=== PATIENT | female | born 2000 | race Asian ===

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

== ENCOUNTER 2019-02-12 17:11 | Emergency (ER) | payer BC, OTHER ==
[2019-02-12 17:21] VITALS: BMI 22.6
[2019-02-12] MEDS ORDERED: SODIUM CHLORIDE 1,000 ML IV STA (17:52)
--- NOTE | 2019-02-12 17:52 | PDOC ---
Rapid Medical Evaluation Chief Complaint: Pain Time Seen by Provider: 02/12/19 17:41 Medical Evaluation: Allergies Allergy/AdvReac Type Severity Reaction Status Date / Time No Known Allergies Allergy Verified 11/12/17 18:51 Vital Signs Temp Pulse Resp BP Pulse Ox 98.1 F 147 H 18 119/74 99 02/12/19 17:19 02/12/19 17:19 02/12/19 17:19 02/12/19 17:19 02/12/19 17:19 02/12/19 17:50 I have done a rapid medical evaluation. 18 yo 8 week F w/ abdominal pain, nausea, vaginal bleeding, tachycardic at 147. NO documented IUP. Pt needs higher level of care, will upgrade to main ER. CHarge nurse Paula singh. Pt placed in 12A. Discharge Disposition - Discharge Dispostion Last Admission D/C Date: 11/13/17 - Referrals - Patient Instructions - Post Discharge Activity
[2019-02-12] MEDS ORDERED: METOCLOPRAMIDE HCL INJECTION 10 MG/2 ML VIAL IVPUSH ONE (18:25)
[2019-02-12] MEDS ORDERED: DEXTROSE 5%-NORMAL SALINE 1,000 ML IV ONE (18:25)
[2019-02-12] MEDS ORDERED: METOCLOPRAMIDE HCL INJECTION 10 MG/2 ML VIAL ONE (18:30)
--- NOTE | 2019-02-12 18:33 | PDOC ---
Documentation entered by Patricia Bhakta SCRIBE, acting as scribe for Savana Joseph MD. Savana Joseph MD: This documentation has been prepared by the scribe, Patricia Bahkta SCRIBE, under my direction and personally reviewed by me in its entirety. I confirm that the documentation accurately reflects all work, treatment, procedures, and medical decision making performed by me. History of Present Illness - General Chief Complaint: Pain Stated Complaint: NAUSEA/VOMITING Time Seen by Provider: 02/12/19 17:41 History Source: Patient Exam Limitations: No Limitations - History of Present Illness Initial Comments: 02/12/19 19:02 Ms. Sampson is a 18 year old female, A0, currently 2 months , with past medical history significant for elevated heart rate (with negative work up at [facility]) presents to the emergency department with headache, pelvic cramps, nausea, vomiting, with decreased PO intake. The patient presents with 2 weeks of ongoing lower abdominal pain, that travels to the right back, vaginal discomfort, dizziness, nausea and vomiting. The patient reports she is unable to keep any fluids or solids down, states shes hungry and feels dehydrated, attempting to drink fluids and gatorade. The patient reports additional concern of intermittent chest pain, thats sharp in quality, that radiates to the left side to the back with difficulty moving her arm. The patient reports her symptoms worsened today, with a new onset of vaginial spotting. The patient reports additional concern of cough, shortness of breath and constipation. The patient reports her last bowel movement was a week ago, no relief with Senna. The patient reports 2 days prior she had a low grade temperature of 100. The patient reports a history of headache, for which she takes Tylenol, last dose was at 11:00 am this morning. The patient reports prior to , she was having brownish vaginal discharge for a week, states thats when she took the took and found out that she was . Denies leg pain, sore throat, weakness, numbness or tingling. The patient reports she had heart problem ?PFO in 2018, with unremarkable workup by cards at [facility], while was with [facility]. LMP: December 02, 2018 (irregular at baseline) Allergies: NKDA Social history: No tobacco, alcohol or drug use reported. 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 Initially followed Dr. Solis , due to insurance issues, she was referred to Dr. Brand. Past History - Past Medical History Allergies/Adverse Reactions: Allergies Allergy/AdvReac Type Severity Reaction Status Date / Time No Known Allergies Allergy Verified 11/12/17 18:51 Home Medications: Ambulatory Orders Cephalexin Monohydrate [Keflex -] 500 mg PO BID 10 Days #20 capsule 02/12/19 Metoclopramide HCl [Reglan -] 10 mg PO BID PRN #8 tablet 02/12/19 Nystatin Cream [Mycostatin Cream -] 1 applic VG DAILY #10 applic 02/12/19 Asthma: Yes (uses albuterol inhaler PRN) Cancer: No Cardiac Disorders: No COPD: No Diabetes: No HTN: No Seizures: No Thyroid Disease: No - Suicide/Smoking/Psychosocial Hx Smoking History: Never smoked Have you smoked in the past 12 months: No Hx Alcohol Use: No Drug/Substance Use Hx: No Substance Use Type: None Hx Substance Use Treatment: No Review of Systems - Review of Systems Able to Perform ROS?: Yes Comments:: 02/12/19 19:02 GENERAL/CONSTITUTIONAL:+low grade fever or chills. + weakness. no sweats. HEAD, EYES, EARS, NOSE AND THROAT: No change in vision or hearing. No ear pain or discharge. . No difficulty swallowing. No congestion. +sore throat and dry mouth CARDIOVASCULAR: +chest pain. No palpitations, syncope or edema. RESPIRATORY: +SOB, cough, No wheezing, or hemoptysis. GASTROINTESTINAL +abdominal pain, nausea, vomiting, constipation, decreased PO intake. No diarrhea or bloody stool. GENITOURINARY: +vaginal spotting. No hematuria, dysuria, frequency, urgency or other changes. MUSCULOSKELETAL: No joint or muscle swelling or pain. No decreased range of motion. No neck pain. +back pain SKIN: No rash or changes in skin color or lesions. No wounds. NEUROLOGIC: alert and oriented appropriately +headache and dizziness. No loss of consciousness, or change in strength/sensation. HEMATOLOGIC/LYMPHATIC: No anemia, easy bruising/bleeding, or history of blood clots. ALLERGIC/IMMUNOLOGIC: No allergies PSYCH: no anxiety/depression All other systems reviewed and negative, or as documented in HPI. *Physical Exam - Vital Signs Last Vital Signs Temp Pulse Resp BP Pulse Ox 98.1 F 147 H 18 119/74 99 02/12/19 17:19 02/12/19 17:19 02/12/19 17:19 02/12/19 17:19 02/12/19 17:19 - Physical Exam Comments: 02/12/19 19:02 General: Well appearing, awake and alert, NAD. HEENT: NCAT, PERRL, EOMI, clear conjunctiva, anicteric, moist mucus membranes, clear oropharynx, no oral lesions.. Neck: neck supple, FROM Resp: CTAB, normal and even respirations, no respiratory distress CVS: +tachycardic, no murmurs, 2+ peripheral pulses throughout, no peripheral edema Abdomen: soft, nondistended, +suprapubic tenderness, without rebound or guarding. No CVA tenderness. Negative Brewster. No mcburneys point tenderness. Back: nontender, normal inspection and ROM MSK: no edema, DAVIS x4, ROM intact. No clubbing or cyanosis. normal bulk and tone. Extremities: no calf tenderness Neuro: alert, oriented appropriately; no focal neurologic deficits Skin: warm and well perfused, cap refill <2 sec, normal color, no rash Heart Score/ECG Review #1 ECG reviewed & interpreted by me at: 18:30 General ECG Interpretation: Sinus Rhythm, Normal Intervals Compared to previous ECG there are: Previous ECG unavail 02/12/19 18:46 EKG sinus tachycardia at 112bpm, no interval abnormalities, narrow QRS, ST and T wave segments and morphology normal. Nonspecific T wave abnormalities likely rate related - ECG Impressions Tachycardia: Sinus ED Treatment Course - LABORATORY CBC & Chemistry Diagram: 02/12/19 18:23 02/12/19 18:23 - RADIOLOGY Radiology Studies Ordered: Category Date Time Status <14WKS US [US] Stat Ultrasound 02/12/19 18:26 Ordered Radiograph Interpretation: 02/12/19 20:08 02/12/19 19:45 THIS IS A PRELIMINARY REPORT FROM [facility] DATE OF SERVICE: 2019-02-12 19:04:05 EXAM: OB ultrasound, twin gestations FINDINGS: There are dichorionic, diamniotic live twin gestations. Twin A: Estimated gestational age is 11 weeks 3 days. heart rate is 173 beats per minute. Twin B: Estimated gestational age is 11 weeks 2 days. heart rate is 185 beats per minute. The left ovary is not seen. Right ovary measures 3.0 x 1.8 x 1.9 cm. There is intact blood flow demonstrated to the right ovary. There is no free fluid seen. THIS DOCUMENT HAS BEEN ELECTRONICALLY SIGNED Doug Mckeon MD 02/12/2019 19:35 EST Medical Decision Making - Medical Decision Making 02/12/19 18:32 See HPI for details Vital signs reviewed, no fever, +tachycardia. likely dehydration DDx abdominal pain: Renal colic, biliary colic, metabolic/electrolyte derangements. GERD, PUD, esophageal spasm, pancreatitis, hepatitis, constipation , colitis, gastroenteritis, cholecystitis, UTI, pyelonephritis, ileus, SBO, medication side effect, hernia, appendicitis, diverticulitis, clinically doubt intra abdominal pathology, no focal RUQ or RLQ pain to suggest appy or tara. ectopic , miscarriage, demise, subchorionic hematoma, retained POC, normal first trimester bleeding, UTI in in . Fibroid uterus, vaginitis, infection, electrolyte/metabolic derangements, anemia. Prior notes reviewed, including admissions, discharges and consultations. laboratory results and imaging reviewed, basic labs and lytes wnl, UA_yeast and +WBCs/leuk esterase, treat as clinical UTI in with keflex course. EKG sinus tachycardia at 112bpm, no interval abnormalities, narrow QRS, ST and T wave segments and morphology normal. Nonspecific T wave abnormalities likely rate related Rh positive, no rhogam indicated - prior txs checked VS wnl, abdomen benign, no VB here, controlled Beta hcg appropriately elevated TVUS with twin gestation, live IUPs with dating at 11w2d with FHRs. ED course - most likely dehydration, poor PO intake with this , n/v. tachycardia improved, likely from dehydration. does not appear septic or toxic, doubt PE as no cp or sob or syncope, physio tachy expected in and pt has clinically improved. - IVF, dextrose, tylenol, reglan and reassess - requesting food and able to tolerate crackers and juice. feels much improved, informed of results and prompt followup - rx reglan for n/v in , supportive care and hydration. rx keflex and topical antifungal nystatin for yeast infection. Dispo: OB followup, bleeding precautions, advised prenatals. Pt to be discharged in stable condition. Patient made aware of impression and plan, return precautions discussed (including but not limited to worsening pain or symptoms), fevers, or signs of infection, chest pain, respiratory distress, inability to tolerate oral intake, dehydration, syncope, or neurologic changes) . Follow up with PMD and OB as recommended, follow up information provided, take medications as instructed for duration of time. continue with supportive care, avoid triggers and precipitants. All questions answered to patient's satisfaction and expressed understanding and comfort with this. Patient does not suffer from an acute life-threatening medical condition at this time she is safe for outpatient follow-up. 02/12/19 20:53 *DC/Admit/Observation/Transfer Diagnosis at time of Disposition: Nausea and vomiting during , UTI (urinary tract infection) Twin Qualifiers: Multiple gestation type: unspecified Trimester: unspecified trimester Qualified Code(s): O30.009 - Twin , unspecified number of placenta and unspecified number of amniotic sacs, unspecified trimester - Discharge Dispostion Disposition: HOME Condition at time of disposition: Improved Decision to Admit order: No - Prescriptions Prescriptions: Cephalexin Monohydrate [Keflex -] 500 mg PO BID 10 Days #20 capsule Metoclopramide HCl [Reglan -] 10 mg PO BID PRN #8 tablet PRN Reason: Nausea And/Or Vomiting Nystatin Cream [Mycostatin Cream -] 1 applic VG DAILY #10 applic - Referrals Referrals: Edwina Daigle MD [Staff Physician] - Aby Cortez MD [Staff Physician] - - Patient Instructions Printed Discharge Instructions: Diet, DI for Urinary Tract Infection (UTI), DI for -- Discomforts and Remedies, DI for Abdominal Pain -- Early Additional Instructions: 1) Please follow-up with your primary care doctor in the next 1-2 days. Please call tomorrow for for any urgent issues. 2) You were given a copy of the tests performed today. Please bring the results with you and review them with your primary care doctor. Your laboratory / imaging results were normal, you have twin you should take daily vitamins and follow with your racecourse barrier attendant and establish care. you have a vaginal yeast infection - use applicator for vaginal candidiasis, for 10 days clean and proper hygiene also you have urinary tract infection, take keflex twice a day x 10 days. If you have any worsening of symptoms or any other concerns please return to the ED immediately. Return if worsening symptoms including fevers, headache, vomiting, visual or hearing disturbances, abdominal pain, chest pain, shortness of breath, syncope, dehydration, inability to take things by mouth/vomiting, altered mental status, or worsening concerning symptoms. take reglan every 12 hours as needed for nausea and vomiting in , take small bites of food and stay hydrated. obstetricians have been provided for prompt followup. - Post Discharge Activity
[2019-02-12 18:41] LABS: BASO % 0.5 % (0-2.0); EOS % 1.2 % (0-4.5); HEMATOCRIT 35.8 % (32.4-45.2); HEMOGLOBIN 12.3 GM/dL (10.7-15.3); MCH 28.3 pg (25.7-33.7); MCHC 34.4 g/dl (32.0-36.0); MEAN CELL VOLUME 82.1 fl (80-96); MONO % 7.2 % (3.8-10.2); NEUT % 73.1 % (42.8-82.8); PLATELET COUNT 218 K/MM3 (134-434); RBC 4.36 M/mm3 (3.60-5.2); RDW 13.3 % (11.6-15.6); WHITE BLOOD COUNT 5.3 K/mm3 (4.0-10.0)
[2019-02-12 18:44] VITALS: TEMP 99.4
[2019-02-12 19:06] LABS: ALBUMIN 3.2 g/dl (3.4-5.0); ALK PHOS 93 U/L (45-117); ANION GAP 9 MMOL/L (8-16); BILIRUBIN,TOTAL 0.3 mg/dL (0.2-1); BLOOD UREA NITROGEN 4 mg/dL (7-18); CALCIUM 9.1 mg/dL (8.5-10.1); CHLORIDE 105 mmol/L (98-107); CO2 24 mmol/L (21-32); CREATININE 0.4 mg/dL (0.55-1.3); GLUCOSE,RANDOM 90 mg/dL (74-106); LIPASE 110 U/L (73-393); SGOT/AST 23 U/L (15-37); SGPT/ALT 30 U/L (13-61); SODIUM 138 mmol/L (136-145); TOT PROT 7.2 g/dl (6.4-8.2)
[2019-02-12 19:49] VITALS: BP 105/62; PULSE 110
[2019-02-12] MEDS ORDERED: ACETAMINOPHEN 325 MG TABLET (FP) PO ONE (20:07)
[2019-02-12] MEDS ORDERED: ACETAMINOPHEN 325 MG TABLET (FP) ONE (20:07)
[2019-02-12 20:16] LABS: EPI CELLS >36 /HPF (0-5/HPF); PH,URINE 6.5 (5.0-8.0); URINE APPEARANCE TURBID; URINE BACTERIA 6966.6 /hpf (NEGATIVE); URINE BILIRUBIN NEGATIVE (NEGATIVE); URINE CASTS 28 /lpf (0-8); URINE COLOR DK YELLOW; URINE GLUCOSE (UA) NEGATIVE (NEGATIVE); URINE KETONE 4+ (NEGATIVE); URINE LEUK ESTERASE 3+ (NEGATIVE); URINE NITRITE NEGATIVE (NEGATIVE); URINE PROTEIN 1+ (NEGATIVE); URINE RBC 3 /hpf (0-4); URINE WBC 280 /hpf (0-5); YEAST REVIEW (NEGATIVE)
[2019-02-12] MEDS ORDERED: CEPHALEXIN MONOHYDRATE 500 MG CAPSULE (UD) PO ONE (20:27)
[2019-02-12] MEDS ORDERED: CEPHALEXIN MONOHYDRATE 500 MG CAPSULE (UD) ONE (20:40)
--- NOTE | 2019-02-13 15:27 | EKG ---
Test Reason : Blood Pressure : / mmHG Vent. Rate : 112 BPM Atrial Rate : 112 BPM P-R Int : 136 ms QRS Dur : 082 ms QT Int : 318 ms P-R-T Axes : 054 010 048 degrees QTc Int : 434 ms SINUS TACHYCARDIA OTHERWISE NORMAL ECG NO PREVIOUS ECGS AVAILABLE Confirmed by NATHALIA GASPAR MD ([id number]) on 02/13/2019 3:27:22 PM Referred By: Confirmed By:NATHALIA GASPAR MD
== END 2019-02-12 21:26 | disposition home or self-care (01) ==
LOC: JER 17:11
PROC: 3E0337Z Introduction of Electrolytic and Water Balance Substance into Peripheral Vein, Percutaneous Approach (ICD-10-PCS; principal; 2019-02-12)
PROC: 3E033GC Introduction of Other Therapeutic Substance into Peripheral Vein, Percutaneous Approach (ICD-10-PCS; 2019-02-12)
DX: O30.001 Twin pregnancy, unspecified number of placenta and unspecified number of amniotic sacs, first trimester (principal); O21.0 Mild hyperemesis gravidarum; O23.31 Infections of other parts of urinary tract in pregnancy, first trimester; Z3A.11 11 weeks gestation of pregnancy
CPT/HCPCS: 36415; 76801-TC; 80053; 81003; 83605; 83690; 84702; 84703; 85025; 87086; 93005; 93010; 96361; 96374; 99284-25; J7030